=== PATIENT | female | born 1965 | race Caucasian/White ===

== ENCOUNTER → 2020-04-15 | Day surgery (SDC) | payer MEDICARE, MEDICAID ==
[~2020-04-15] MED LIST: Lactated Ringers 1,000 ML IV SCH; Propofol 200 MG/20 ML SDV IV ONE
[2020-04-15 10:11] VITALS: BP 147/57; PULSE 89
--- NOTE | 2020-04-15 10:58 | OR ---
DATE OF OPERATION: 04/15/2020 PREOPERATIVE DIAGNOSIS: 1. HEMATOCHEZIA. 2. DIARRHEA. POSTOPERATIVE DIAGNOSIS: 1. HEMATOCHEZIA. 2. DIARRHEA. SURGEON: Santino Bronson MD PROCEDURE: DIAGNOSTIC COLONOSCOPY WITH FORCEPS POLYP REMOVAL X1. ANESTHESIA: MAC. COMPLICATIONS: None. SPECIMEN: Small sessile polyp, rectal vault. FINDINGS: 1. Full-length colonoscopy. 2. Poor bowel prep. 3. Sessile polyp, rectal vault. 4. Anal skin tags and slight anal stricturing. RECOMMENDATIONS: Routine colonoscopy per ACS guidelines in 5 years. INDICATIONS: The patient apparently has been having some occasional diarrhea and apparently had some bloody stool. She was sent for diagnostic scope. DESCRIPTION OF PROCEDURE: The patient was prepped and draped, placed in the left lateral decubitus position. A lubricated Olympus colonoscope was inserted and with ease advanced to the cecum. We were able to directly visualize the ileocecal valve. It was difficult to get deep down into the cecal pouch as the patient had copious thick stool here. I tried to irrigate but just could not completely, but no gross abnormalities were seen. Upon withdrawal, the right transverse and descending colons were completely unremarkable. Sigmoid colon had no polyps, masses, ulceration, or lesions. No vascular abnormalities or bleeding sites. There were no significant diverticula. The rectal vault had 1 small hyperplastic-appearing polyp about 3 mm in size, flat. We removed it with forceps. Retroflexion of scope showed no perianal lesions. Some mild hemorrhoidal disease. There were a few external anal skin tags as well from prior hemorrhoids. No other lesions seen. Air was suctioned. Scope removed without complication. ANTHONY/ARIAN /[id number]
== END ==
LOC: CC.SDS 08:06
PROVIDERS: ATTEND Family Medicine
DX: D12.8 Benign neoplasm of rectum (principal); K64.4 Residual hemorrhoidal skin tags; K62.4 Stenosis of anus and rectum; F31.9 Bipolar disorder, unspecified; E78.00 Pure hypercholesterolemia, unspecified; E03.9 Hypothyroidism, unspecified; I10 Essential (primary) hypertension; Z88.8 Allergy status to other drugs, medicaments and biological substances; Z88.2 Allergy status to sulfonamides; Z91.030 Bee allergy status; Z88.6 Allergy status to analgesic agent; Z79.899 Other long term (current) drug therapy
CPT/HCPCS: 45380; 88305; J2704; J7120

== ENCOUNTER 2025-10-22 07:08 | Day surgery (SDC) | payer MEDICARE, MEDICAID ==
[2025-10-22] MEDS: Lactated Ringers 1,000 ML IV SCH (08:07)
[2025-10-22] MEDS ORDERED: fentaNYL 50 MCG/ML SDV ONE (08:30)
[2025-10-22] MEDS ORDERED: Propofol 200 MG/20 ML SDV ONE (08:30)
[2025-10-22] MEDS ORDERED: Midazolam 1 MG/ML 2 ML SDV ONE (08:30)
[2025-10-22] MEDS ORDERED: Ketamine 200 MG/20 ML MDV ONE (08:30)
[2025-10-22 10:38] VITALS: BP 141/71; PULSE 85
== END 2025-10-22 09:55 | disposition home or self-care (01) ==
LOC: CC.SDS 07:08
PROVIDERS: ATTEND Family Medicine
DX: Z12.11 Encounter for screening for malignant neoplasm of colon (principal); K31.89 Other diseases of stomach and duodenum; K31.7 Polyp of stomach and duodenum; K29.70 Gastritis, unspecified, without bleeding; R13.10 Dysphagia, unspecified; I10 Essential (primary) hypertension; E03.9 Hypothyroidism, unspecified; K21.9 Gastro-esophageal reflux disease without esophagitis; Z88.8 Allergy status to other drugs, medicaments and biological substances; Z91.030 Bee allergy status; Z79.890 Hormone replacement therapy; Z79.899 Other long term (current) drug therapy; Z86.0100 Personal history of colon polyps, unspecified
CPT/HCPCS: 87077; J2003; J2250; J2704; J3010; J3490; J7120